=== PATIENT | male | born 1995 | race Caucasian/White ===

== ENCOUNTER 2017-06-04 12:20 | Emergency (ER) | payer BC | END 2017-06-04 14:02 | disposition home or self-care (01) | LOC: ER 12:20 | DX: Z76.0 Encounter for issue of repeat prescription (principal); L30.9 Dermatitis, unspecified; J45.909 Unspecified asthma, uncomplicated; F12.10 Cannabis abuse, uncomplicated | CPT/HCPCS: 99283 ==